=== PATIENT | female | born 1950 | race Caucasian/White ===

== ENCOUNTER → 2019-08-30 10:47 | Outpatient (CLI) | payer MEDICARE, SELFPAY | PROVIDERS: PCP Family Medicine; Visit Provider Family Medicine | DX: N89.8 Other specified noninflammatory disorders of vagina (principal) | CPT/HCPCS: 87070; 87075; 87077; 87147; 87186; 87205 ==

== ENCOUNTER 2019-09-16 11:15 | Outpatient (RCR) | payer MEDICARE, SELFPAY ==
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
--- NOTE | 2019-08-05 09:45 | PT.OPPOC ---
Current Diagnoses Bilateral primary osteoarthritis of knee (08/05/19) Radiculopathy, lumbar region (08/05/19) Muscle weakness (generalized) (08/05/19) Abnormal posture (08/05/19) Visit Care Team Role Provider Type Coby Blake DO Attending Provider Physician Primary Care Provider Specialty: Family Practice Address: [address] [place] [address], [address], [facility] Email: [email or web address] Plan Of Care PT-OP-T Assessment and Plan Start: 08/05/19 18:12 Freq: Status: Active Protocol: Document 08/05/19 09:45 DLM (Rec: 08/05/19 19:21 DLM [id number]) Physical Therapy Assessment Rehab Potential Rehabilitation Potential Good Evaluation Complexity Number of Personal Factors/Comorbidities 3 or More Number of Body Systems Impaired 4 or More Clinical Presentation at Evaluation Evolving Impairments Impairments Activity Tolerance,Functional Mobility,Gait,Pain,Posture,ROM ,Soft Tissue Mobility,Strength Goals Four Impairment Standing limited by pain Short Term Goal (STG) Be able to stand for 30 min without increased pain STG Duration 4 weeks Hand Pleater Goal (LTG) Be able to stand for 1 hour without increased pain LTG Duration 8 weeks Three Impairment Decreased strength Short Term Goal (STG) Increase LE strength to 4/5 STG Duration 4 weeks Hand Pleater Goal (LTG) Increase LE strength to 5/5 LTG Duration 8 weeks Two Impairment Pain limits Walking for exercise Short Term Goal (STG) Be able to walk 30 min for exercise STG Duration 4 weeks Residential Goal (LTG) Be able to walk for 1 hour for exercise LTG Duration 8 weeks One Impairment Pain 5-6/10, constant Short Term Goal (STG) Decrease her pain to intermittent STG Duration 4 weeks Hand Pleater Goal (LTG) Decrease her pain to 2-3/10, intermittent LTG Duration 8 weeks Assessment Summary Assessment Hemalatha present with low back pain and bilateral knee pain that is chronic in nature and has progressively gotten worse . Lumbar and knee joints show degenerative changes. Soft tissue tightness and muscular weakness appears to be contributing to her pain. She reports a progressive decline in her activity tolerance at home associated with her pain. She could benefit from physical therapy to address the above impairments. She is not currently participating in any HEP. Physical Therapy Plan Frequency and Duration Frequency of Treatment 2x/Week Duration of Treatment 8 weeks Plan of Care Start Date 08/05/19 Plan of Care End Date 09/30/19 Therapeutic Interventions Therapeutic Interventions Aquatic Therapy,Gait Training, Home Exercise Program,Joint Mobilizations,Manual Therapy, Patient/Caregiver Education, Self-Care/Home Management,Soft Tissue Mobilization,Taping, Therapeutic Activities, Therapeutic Exercises Modalities Cold Pack/Ice Massage,Electric Stimulation,Hot Packs, Ultrasound Next Visit Focus/Plan Next Note Type Treatment Note Next Visit Plan start stretching for low back and strengthening ex for knees Plan of Care Dates Plan of Care Start Date 08/05/19 Plan of Care End Date 09/30/19 Please Sign and Return: I have reviewed this Plan of Care and certify that the skilled therapy services above are required to meet the patient?s needs. Physician Signature Date Printed Name and Credentials Clinical Instructor Signature Printed Name and Credentials
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
== END 2019-09-17 11:15 ==
LOC: PHYS 11:15
PROVIDERS: PCP Family Medicine; Visit Provider Family Medicine
DX: M54.16 Radiculopathy, lumbar region (principal); M17.0 Bilateral primary osteoarthritis of knee; R29.3 Abnormal posture; M62.81 Muscle weakness (generalized)
CPT/HCPCS: 97010; 97110; 97140; 97162

== ENCOUNTER → 2019-11-09 11:33 | Outpatient (CLI) | payer MEDICARE, SELFPAY ==
[2019-11-09 12:22] LABS: Appearance Urine UA CLEAR; Bilirubin Urine UA NEGATIVE (NEGATIVE); Color Urine UA YELLOW; Glucose Urine UA NEGATIVE (Negative); Ketones Urine UA NEGATIVE (NEGATIVE); Leukocyte Esterase Urine UA NEGATIVE (NEGATIVE); Nitrite Urine UA NEGATIVE (Negative); Occult Blood Urine UA TRACE-LYSED (Negative); Protein Urine UA NEGATIVE (Negative); Specific Gravity Urine UA <=1.005 (1.000-1.035); Urobilinogen Urine UA 0.2 E.U./dL (0.2)
[2019-11-09 12:23] LABS: pH Urine UA 6.5 (4.5-8.0)
[2019-11-09 12:34] LABS: Hematocrit 41.9 % (36-46); Mean Corpuscular HGB Conc 33.3 % (30-36); Mean Corpuscular Hemoglobin 30.3 PG (26-34); Mean Corpuscular Volume 90.9 fL (80-100); Platelet Count 326 X10^3/uL (150-400); Red Blood Cell Count 4.61 X10^6/uL (4.0-5.2); Red Cell Distribution Width 13.1 % (11.6-14.8); White Blood Cell Count 7.2 X10^3/uL (4.5-11.0)
[2019-11-09 13:10] LABS: Neutrophils Absolute Manual 3888 /uL (3000-5900); RBC Morphology Normal Morphology; Total Cells Counted 100
[2019-11-09 13:42] LABS: Alanine Aminotransferase 19 IU/L (<35); Albumin 4.5 g/dL (3.5-5.0); Albumin Globulin Ratio 1.7 (1.0-2.8); Alkaline Phosphatase 96 U/L (38-126); Aspartate Aminotransferase 24 IU/L (14-36); BUN Creatinine Ratio 24.3 (6-22); Bilirubin Total 0.7 mg/dL (0.2-1.3); Blood Urea Nitrogen 17 mg/dL (7-17); Carbon Dioxide 28 mmol/L (22-32); Chloride 103 mmol/L (98-107); Cholesterol 256 mg/dL (140-199); Estimated Glomerular Filt Rate > 60.0 mL/min (>60); Globulin 2.6 g/dL (1.7-4.1); Glucose 88 mg/dL (80-110); HDL Cholesterol 64 mg/dL (40-60); HEMOLYSIS < 15 (0-50); LDL Cholesterol Calculated 162 mg/dL (<100); Potassium 4.7 mmol/L (3.4-5.1); Sodium 140 mmol/L (137-145); Total Protein 7.1 g/dL (6.3-8.2); Triglycerides 150 mg/dL (35-150)
[2019-11-09 15:43] LABS: Thyroid Stimulating Hormone 0.83 uIU/mL (0.47-4.68)
== END ==
PROVIDERS: PCP Family Medicine; Visit Provider Family Medicine
DX: Z51.81 Encounter for therapeutic drug level monitoring (principal); I10 Essential (primary) hypertension
CPT/HCPCS: 36415; 80053; 80061; 81003; 84443; 85025

== ENCOUNTER → 2021-11-30 09:14 | Outpatient (CLI) | payer OTHER, SELFPAY ==
[2021-11-30 11:23] LABS: Alanine Aminotransferase 25 IU/L (<35); Albumin 4.5 g/dL (3.5-5.0); Albumin Globulin Ratio 1.7 (1.0-2.8); Alkaline Phosphatase 96 U/L (38-126); Aspartate Aminotransferase 28 IU/L (14-36); BUN Creatinine Ratio 21.9 (6-22); Bilirubin Total 0.7 mg/dL (0.2-1.3); Blood Urea Nitrogen 14 mg/dL (7-17); Carbon Dioxide 27 mmol/L (22-32); Chloride 106 mmol/L (98-107); Estimated Glomerular Filt Rate > 60.0 mL/min (>60); Globulin 2.7 g/dL (1.7-4.1); Glucose 92 mg/dL (80-110); HEMOLYSIS < 15 (0-50); Potassium 4.2 mmol/L (3.4-5.1); Sodium 139 mmol/L (137-145); Total Protein 7.2 g/dL (6.3-8.2)
== END ==
PROVIDERS: PCP Nurse Practitioner; Referring Provider Orthopaedic Surgery; Visit Provider Nurse Practitioner
DX: Z01.818 Encounter for other preprocedural examination (principal); E66.01 Morbid (severe) obesity due to excess calories; E78.2 Mixed hyperlipidemia; I10 Essential (primary) hypertension; Z68.39 Body mass index [BMI] 39.0-39.9, adult
CPT/HCPCS: 80053; 93005; 93010

== ENCOUNTER → 2021-12-04 12:35 | Outpatient (CLI) | payer OTHER, SELFPAY ==
[2021-12-04 13:22] LABS: Add Manual Diff / Slide Review NO; Basophils Absolute Auto 0 /uL (0-100); Basophils Percent Auto 0.3 % (0-2); Eosinophils Absolute Auto 100 /uL (0-450); Eosinophils Percent Auto 1.3 % (2-4); Hematocrit 39.5 % (36-46); Hemoglobin 13.3 g/dL (12.0-16.0); Lymphocytes Absolute Auto 1700 /uL (1100-4500); Lymphocytes Percent Auto 26.8 % (25-40); Mean Corpuscular HGB Conc 33.6 % (30-36); Mean Corpuscular Hemoglobin 30.1 PG (26-34); Mean Corpuscular Volume 89.6 fL (80-100); Monocytes Absolute Auto 500 /uL (0-900); Monocytes Percent Auto 7.4 % (3-14); Neutrophils Absolute Auto 4200 /uL (1500-7000); Neutrophils Percent Auto 64.2 % (50-75); Platelet Count 318 X10^3/uL (150-400); Red Cell Distribution Width 13.3 % (11.6-14.8); White Blood Cell Count 6.5 X10^3/uL (4.5-11.0)
[2021-12-04 13:33] LABS: Hemoglobin A1C% w Est Avg Glu 5.3 % (4.0-6.0)
[2021-12-04 13:44] LABS: Blood Urea Nitrogen 14 mg/dL (7-17); Calcium 9.7 mg/dL (8.4-10.2); Carbon Dioxide 27 mmol/L (22-32); Chloride 105 mmol/L (98-107); Cholesterol 166 mg/dL (140-199); Estimated Glomerular Filt Rate > 60.0 mL/min (>60); Glucose 91 mg/dL (80-110); HDL Cholesterol 66 mg/dL (40-60); HEMOLYSIS < 15 (0-50); LDL Cholesterol Calculated 84 mg/dL (<100); Potassium 4.3 mmol/L (3.4-5.1); Sodium 140 mmol/L (137-145); Triglycerides 80 mg/dL (35-150)
== END ==
PROVIDERS: PCP Nurse Practitioner; Referring Provider Orthopaedic Surgery; Visit Provider Orthopaedic Surgery
DX: R73.9 Hyperglycemia, unspecified (principal); E78.2 Mixed hyperlipidemia; Z01.812 Encounter for preprocedural laboratory examination; Z79.899 Other long term (current) drug therapy
CPT/HCPCS: 36415; 80048; 80061; 83036; 85025

== ENCOUNTER → 2022-01-28 09:43 | Outpatient (CLI) | payer OTHER, SELFPAY ==
[2022-01-28 14:46] LABS: COVID19 -Nasal RAPID Negative (Negative)
== END ==
PROVIDERS: PCP Nurse Practitioner; Visit Provider Family Medicine Sleep Medicine
DX: Z20.822 Contact with and (suspected) exposure to COVID-19 (principal)
CPT/HCPCS: 87635; C9803

== ENCOUNTER 2022-01-30 08:30 | Day surgery (SDC) | payer OTHER, SELFPAY ==
[2021-12-12 12:59] VITALS: BMI 38.7
[2022-01-30] VITALS (15 sets, daily range): BP systolic 109–167; BP diastolic 44–81; PULSE 57–73; RESP 12–17; TEMP 35.9–36.7; O2SAT 93–99; BMI 37.9
--- NOTE | 2022-01-30 06:00 | DI.RAD.S_ITS ---
PROCEDURE: XR KNEE RT 1TO2V INDICATIONS: prosthesis placement TECHNIQUE: 2 view(s) of the knee acquired. COMPARISON: [facility], [facility], XR KNEE ARTHRITIC SERIES , 02/13/2021, 10:56. FINDINGS: Bones: Patient is status post knee joint arthroplasty. Hardware components are in expected positions. Visualized bony structures are intact. Soft tissues: Overlying postoperative changes are noted. A subtle radiopacity is visualized anterior to the tibia on lateral view which was not present on the study dated February 13, 2021. IMPRESSION: 1. Expected appearances status post right knee arthroplasty. 2. Subtle radiopacity which may be in the soft tissues or overlying the soft tissues as described above. Dictated by: Radha Hughes M.D. on 01/30/2022 at 13:28 Approved by: Radha Hughes M.D. on 01/30/2022 at 13:29
[2022-01-30] MEDS: CELECOXIB 200 MG CAPSULE PO (09:39)
[2022-01-30] MEDS: ACETAMINOPHEN 325 MG TABLET 975 MG PO (09:39)
[2022-01-30] MEDS: PREGABALIN 75 MG CAPSULE PO (09:39)
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
[2022-01-30] MEDS: LACTATED RINGERS 1,000 ML 42 ML IV (09:46)
--- NOTE | 2022-01-30 09:59 | P.OP_ITS ---
Operative Date/Time/Diagnoses Date of procedure: 01/30/22 Time of procedure: 12:25 Pre-op diagnosis: Right knee osteoarthritis Post-op diagnosis: same Procedure & Clinicians Procedure: Right total knee replacement Same procedure as scheduled: Yes Indications: The patient has had progressively worsening right knee pain with radiographic changes consistent with arthritis. Non-operative management has failed and the patient has requested total knee replacement. The risks, benefits and alternatives to surgery were discussed with the patient prior to proceeding. Risks discussed included, but were not limited to, failure to relieve pain, stiffness, infection, nerve damage, deep venous thrombosis, pulmonary embolism, stroke, coma, heart attack, permanent paralysis and , as well as the potential need for eventual revision of the prosthetic. Surgeon: Obinna Mccoy Breast Buffer: Oz Beckford Click Yes if Unassisted: No Anesthesia Type: General, Spinal and Local Operative Notes Findings: Severe medial and moderate patellofemoral osteoarthritis. Closure Type: primary Specimen(s): none sent Prosthetic devices, grafts, tissues, transplants, or devices: Implants used in this procedure were manufactured by the [employer] and included the BCS II Journey total knee replacement with a size 6 right cobalt chromium femur, a size 5 right non porous tibial base plate, a 10 mm cross-linked tibial insert, and a 35 mm oval Yasmine II patella. Applied: implant(s) Estimated Blood Loss (mL): 25 Blood products transfused: none Tourniquet time (min): 52 Procedure in detail: The patient was seen in the pre-operative area, where the patient identified the right knee as the operative site and this was marked with my initials. The patient received pre-operative antibiotics, and was taken to the operating room and placed on the operative table in the supine position. After satisfactory anesthesia, a wet machine tender out was performed. The right leg was encircled with a tourniquet about the proximal thigh, and the leg was prepared from the toes to the tourniquet with ChloroPrep in the usual fashion and draped through sterile drapes. The leg was elevated and exsanguinated with Eschmark bandage and the tourniquet inflated to 250 mmHg pressure. The knee was approached through an approximately 18 cm incision centered over the patella and carried into the knee through a medial parapatellar arthrotomy. The anterior osteophytes and soft tissues were removed. The rotational landmarks of [place]'s line and the transepicondylar axis were marked on the femur with electrocautery, and intramedullary guide holes for the femur and tibia were created. The distal femoral cut was made in 6 degrees of valgus using the intramedullary guide at the primary cut setting. The proximal tibial cut was then made using the intramedullary guide, taking 9 mm of bone off the less involved side. The extension gap was checked and the rotation of the femoral component confirmed with the gap balancing system. The anterior, posterior and chamfer cuts were then made. The posterior osteophytes and soft tissues were then removed. The posterior capsule was injected with part of a mixture of 60 ml 0.25% Marcaine mixed with 20 ml Exparel and 4 mg of morphine for post-operative pain control. The remainder of this mixture was injected into the capsule and subcutaneous tissues during cement curing. The tibia was prepared with the rotation set by an extra medullary guide. Trial tibial and femoral components were then placed and the intercondylar notch cut through the femoral trial. Range of motion was 0-125 degrees, with good stability throughout the range. Further flexion was limited by the patient's obesity. The patella was then cut to accommodate the patellar prosthetic. There was no need for a lateral release. The trials were then removed, and the femoral hole plugged with a bone plug. The bone was prepared with pulsatile lavage, and dried with a sponge. Cement was applied and the final prosthetics placed. Excess cement was removed during and after cement curing. After confirming there was no extruded cement posteriorly, the final tibial insert was placed. The knee was copiously irrigated and the tourniquet deflated. Hemostasis was obtained. The capsule was closed with interrupted # 2 polyester suture. The subcutaneous layer was closed with 3-0 Vicryl, and the skin with a running 3-0 V-Lock suture and Dermabond. An Aquacel Ag dressing was applied and the patient was taken to recovery having tolerated the procedure well. Complications: none Post-operative Condition: stable Disposition: PACU Plan for aftercare: Right total knee postop plan
[2022-01-30] MEDS: CEFAZOLIN 2 GM/20 ML SYRINGE IV (11:10)
[2022-01-30] MEDS: TRANEXAMIC ACID 1,000 MG VIAL 1000 MG INJ ×2 (11:12→12:13)
--- NOTE | 2022-01-30 11:17 | SUR.OPER ---
Supine on padded OR bed. Pillow under head, arms secured on padded armboards <90 degree abduction. Safety belt across torso. Non-operative leg secured with tape over blanket over lower leg. Operative leg secured in DeMayo positioner. Foam padded brace at thigh of operative leg.
[2022-01-30] MEDS: BUPIVACAINE LIPOSOME 266 MG/20 ML VIAL INJ (11:40)
[2022-01-30] MEDS: BUPIVACAINE 0.25% (PF) 60 ML, EPINEPHrine 0.3 MG INJ (11:40)
[2022-01-30] MEDS: MORPHINE 4 MG/ML INJ INJ (11:41)
[2022-01-30] MEDS: fentaNYL 250 MCG/5 ML INJ IV ×5 (12:57→14:00)
[2022-01-30] MEDS: OXYCODONE IR 5 MG TABLET PO ×2 (13:06→14:00)
--- NOTE | 2022-01-30 14:10 | SUR.PHASEII ---
Started on incentive spirometry. Performed x10 up to 2250cc.
--- NOTE | 2022-01-30 14:47 | SUR.PHASEII ---
Using walker, pt able to stand, take 2 steps forward, and pivot into wheelchair. Bending knee without difficulty.
== END 2022-01-30 14:35 | disposition home or self-care (01) ==
LOC: OR 08:32 → AC 08:32
PROVIDERS: PCP Nurse Practitioner; Referring Provider Orthopaedic Surgery; Visit Provider Orthopaedic Surgery
PROC: 0SRC0JZ Replacement of Right Knee Joint with Synthetic Substitute, Open Approach (ICD-10-PCS; CPT 27447; principal; 2022-01-30 10:00)
DX: M17.11 Unilateral primary osteoarthritis, right knee (principal); I10 Essential (primary) hypertension; E78.5 Hyperlipidemia, unspecified
CPT/HCPCS: 27447; 73560; C1776; C1713; C9290; J0171; J0690; J1100; J2250; J2270; J2405; J2704; J3010

== ENCOUNTER → 2022-08-01 11:25 | Outpatient (CLI) | payer OTHER, SELFPAY ==
[2022-08-01 14:28] LABS: Add Manual Diff / Slide Review NO; Basophils Absolute Auto 0 /uL (0-100); Basophils Percent Auto 0.5 % (0-2); Eosinophils Absolute Auto 100 /uL (0-450); Eosinophils Percent Auto 1.7 % (2-4); Hematocrit 40.9 % (36-46); Hemoglobin 13.4 g/dL (12.0-16.0); Lymphocytes Absolute Auto 1700 /uL (1100-4500); Lymphocytes Percent Auto 27.9 % (25-40); Mean Corpuscular HGB Conc 32.8 % (30-36); Mean Corpuscular Hemoglobin 29.4 PG (26-34); Mean Corpuscular Volume 89.5 fL (80-100); Monocytes Absolute Auto 400 /uL (0-900); Neutrophils Absolute Auto 3800 /uL (1500-7000); Neutrophils Percent Auto 62.9 % (50-75); Platelet Count 301 X10^3/uL (150-400); Red Blood Cell Count 4.57 X10^6/uL (4.0-5.2); Red Cell Distribution Width 13.9 % (11.6-14.8); White Blood Cell Count 6.1 X10^3/uL (4.5-11.0)
[2022-08-01 14:33] LABS: Hemoglobin A1C% w Est Avg Glu 5.5 % (4.0-6.0)
[2022-08-01 14:41] LABS: BUN Creatinine Ratio 25.4 (6-22); Blood Urea Nitrogen 16 mg/dL (7-17); Calcium 9.3 mg/dL (8.4-10.2); Carbon Dioxide 29 mmol/L (22-32); Chloride 103 mmol/L (98-107); Estimated Glomerular Filt Rate > 60 mL/min (>60); Glucose 79 mg/dL (80-110); HEMOLYSIS < 15 (0-50); Potassium 4.6 mmol/L (3.4-5.1); Sodium 138 mmol/L (137-145)
== END ==
PROVIDERS: PCP Nurse Practitioner; Referring Provider Orthopaedic Surgery; Visit Provider Orthopaedic Surgery
DX: R73.9 Hyperglycemia, unspecified (principal); M25.561 Pain in right knee; Z01.812 Encounter for preprocedural laboratory examination
CPT/HCPCS: 36415; 80048; 83036; 85025

== ENCOUNTER → 2022-08-19 12:48 | Outpatient (CLI) | payer OTHER, SELFPAY ==
[2022-08-19 13:22] LABS: COVID19 -Nasal RAPID Negative (Negative)
== END ==
PROVIDERS: PCP Nurse Practitioner; Referring Provider Orthopaedic Surgery; Visit Provider Orthopaedic Surgery
DX: Z20.822 Contact with and (suspected) exposure to COVID-19 (principal)
CPT/HCPCS: 87635; C9803

== ENCOUNTER 2022-08-21 06:14 | Day surgery (SDC) | payer OTHER, SELFPAY ==
[2022-08-15 09:48] VITALS: BMI 40.3
[2022-08-21] VITALS (16 sets, daily range): BP systolic 106–181; BP diastolic 54–99; PULSE 61–87; RESP 12–98; TEMP 35.9–36.6; O2SAT 14–98; BMI 37.1; BMI 42.0
--- NOTE | 2022-08-21 06:00 | DI.RAD.S_ITS ---
PROCEDURE: XR KNEE LT 1TO2V INDICATIONS: total left knee TECHNIQUE: 2 view(s) of the knee acquired. COMPARISON: [facility], CR, XR KNEE 4+ VIEWS LEFT, 05/06/2022, 10:51[facility], CR, XR KNEE RT 1TO2V, 01/30/2022, 12:46. FINDINGS: Bones: Patient is status post knee joint arthroplasty. Hardware components are in expected positions. Visualized bony structures are intact. Soft tissues: Overlying postoperative changes are noted. IMPRESSION: Postop changes from left total knee arthroplasty with anatomic left knee alignment. Dictated by: Kingston Stover M.D. on 08/21/2022 at 10:22 Approved by: Kingston Stover M.D. on 08/21/2022 at 10:23
[2022-08-21] MEDS: ACETAMINOPHEN 325 MG TABLET 975 MG PO (07:07)
[2022-08-21] MEDS: CELECOXIB 200 MG CAPSULE PO (07:08)
[2022-08-21] MEDS: LACTATED RINGERS 1,000 ML 42 ML IV (07:11)
--- NOTE | 2022-08-21 07:43 | PM.PREOP ---
Pre-operative Note COVID-19 COVID-19 status: Negative Result date/Date tested (Pos, Neg/Pending): 08/19/22 Interval Note History & Physical reviewed/Exam performed by Physician: Yes Changes to H&P: No
[2022-08-21] MEDS: CEFAZOLIN 2 GM/100 ML PREMIX 100 ML IV ×3 (07:57→23:33)
[2022-08-21] MEDS: TRANEXAMIC ACID 1,000 MG VIAL 2000 MG INJ ×2 (08:04→09:15)
--- NOTE | 2022-08-21 08:23 | SUR.OPER ---
Supine on padded OR bed. Pillow under head, arms secured on padded armboards <90 degree abduction. Safety belt across torso. Non-operative leg secured with tape over blanket over lower leg. Operative leg secured in DeMayo positioner.
[2022-08-21] MEDS: BUPIVACAINE 0.25% (PF) 60 ML, EPINEPHrine 0.3 MG INJ (08:35)
[2022-08-21] MEDS: BUPIVACAINE LIPOSOME 266 MG/20 ML VIAL INJ (08:35)
[2022-08-21] MEDS: MORPHINE 4 MG/ML INJ INJ (08:36)
--- NOTE | 2022-08-21 09:44 | P.OP_ITS ---
Operative Date/Time/Diagnoses Date of procedure: 08/21/22 Time of procedure: 09:30 Pre-op diagnosis: Left knee osteoarthritis with retained screws from prior procedure Post-op diagnosis: same Procedure & Clinicians Procedure: 1. Left total knee replacement 2. Removal of deep hardware Same procedure as scheduled: Yes Indications: The patient has had progressively worsening left knee pain with radiographic changes consistent with arthritis. Non-operative management has failed and the patient has requested total knee replacement. She also has retained screws from a prior tibial tubercle transfer and is aware that these need to be removed to facilitate the total knee replacement. The risks, benefits and alternatives to surgery were discussed with the patient prior to proceeding. Risks discussed included, but were not limited to, failure to relieve pain, stiffness, infection, nerve damage, deep venous thrombosis, pulmonary embolism, stroke, coma, heart attack, permanent paralysis and , as well as the potential need for eventual revision of the prosthetic. Surgeon: Obinna Mccoy Field Crop Technical Officer: Oz Beckford Click Yes if Unassisted: No Anesthesia Type: General, Spinal and Local Operative Notes Findings: Severe medial osteoarthritis. Difficult exposure of the patellofemoral joint due to prior tibial tubercle transfer. Mild patella baja. Closure Type: primary Specimen(s): none sent Prosthetic devices, grafts, tissues, transplants, or devices: Implants used in this procedure were manufactured by the [employer] and included the BCS II Journey total knee replacement with a size 6 left cobalt chromium femoral component, a size 5 left non porous tibial base plate, a 9 mm cross-linked polyethylene tibial insert and a 35 mm oval Yasmine II patellar resurfacing component. Two large fragment cancellous Synthes screws were removed from the tibial tubercle. Applied: implant(s) Estimated Blood Loss (mL): 25 Blood products transfused: none Tourniquet time (min): 53 Procedure in detail: The patient was seen in the pre-operative area, where the left knee was identified as the operative site and this was marked with my initials. The patient received pre-operative antibiotics, and was taken to the operating room and placed on the operative table in the supine position. After satisfactory anesthesia, a part time out was performed. The left leg was encircled with a tourniquet about the proximal thigh, and the leg was prepared from the toes to the tourniquet with ChloroPrep in the usual fashion and draped through sterile drapes. The leg was elevated and exsanguinated with Eschmark bandage and the tourniquet inflated to 250 mmHg pressure. The knee was approached through an approximately 18 cm incision which curved to incorporate the 2 prior surgical incisions from her patellar surgery and was carried into the knee through a medial parapatellar arthrotomy. The heads of the 2 screws in the tibial tubercle were readily identified and the screws removed with a large fragment screwdriver. This proceeded without difficulty. The anterior osteophytes and soft tissues were removed. The rotational landmarks of [place]'s line and the transepicondylar axis were marked on the femur with electrocautery, and intramedullary guide holes for the femur and tibia were created. The distal femoral cut was made in 6 degrees of valgus using the intramedullary guide at the primary cut setting. The proximal tibial cut was then made using the intramedullary guide, taking 9 mm of bone off the less involved side. The extension gap was checked and the rotation of the femoral component confirmed with the gap balancing blocks. The anterior, posterior and chamfer cuts were then made. The posterior osteophytes and soft tissues were then removed. The posterior capsule was injected with part of a mixture of 60 ml 0.25% Marcaine mixed with 20 ml Exparel and 4 mg of morphine for post-operative pain control. The remainder of this mixture was injected into the capsule and subcutaneous tissues during cement curing. The tibia was prepared with the rotation set by an extra medullary guide. Trial tibial and femoral components were then placed and the intercondylar notch cut through the femoral trial. Range of motion was 0-135 degrees, with good stability throughout the range. The patella was then cut to accommodate the patellar prosthetic. There was no need for a lateral release. The trials were then removed, and the femoral hole plugged with a bone plug. The bone was prepared with pulsatile lavage, and dried with a sponge. Cement was applied and the final prosthetics placed. Excess cement was removed during and after cement curing. After confirming there was no extruded cement posteriorly, the final tibial insert was placed. The knee was copiously irrigated and the tourniquet deflated. Hemostasis was obtained. The capsule was closed with interrupted # 2 polyester sutures. The subcutaneous layer was closed with 3-0 Vicryl, and the skin with a running 3-0 V-Lock suture and Dermabond. A dressing of 4x4s, cast padding and an Lico wrap was applied and the patient was taken to recovery having tolerated the procedure well. Complications: none Post-operative Condition: stable Disposition: PACU Plan for aftercare: The patient has requested to be discharged today. She will be discharged from the recovery room if stable. If she has medical issues or uncontrolled pain requiring overnight admission she will be admitted to the hospital later this morning.
--- NOTE | 2022-08-21 10:42 | SUR.PHASEI ---
Pt transferred to room 203 in bed with 1 belongings bag by Leola Noriega. Report called to Carola NORIEGA.
--- NOTE | 2022-08-21 11:11 | CM.DANOTE ---
DCP: Case received, EMR reviewed and met with patient. Introduced self and role. Was able to obtain information regarding patient's baseline activity status prior to her surgery. DCP assessment completed with information currently available. Patient is a 72 year old female who admitted early this morning to the care of the orthopedic team. PCP: JUANITA Farrar. Payer: confirmed: [employer]. Patient came to the hospital for a surgical procedure. She had a left total knee replacement. Patient has history of left knee osteoarthritis. Met with patient in her room. She was sitting up in bed, alert and oriented. Confirmed that she resides in [facility] with with her spouse, Alvarado. At her baseline, she is independent, does not use any DME, and drives. P: Patient should be discharging today, but will work with P.T. prior. Jamila Madison RN/Project Associate Discharge Planning/Care Management CM Discharge Assessment Start: 08/21/22 11:10 Freq: Status: Active Protocol: Document 08/21/22 11:10 (Rec: 08/21/22 11:11 [id number]) Discharge Planning Assessment Assigned Welt Stitch Cleaner Jamila Madison RN/Project Associate Advance Directives? Yes History Provided By Patient Prior Living Arrangements House Household Members spouse Type of transporation used prior to Drives own vehicle admit Independent with ADL's Yes Is patient alert and oriented? Yes Caregiver for Another No Discharge Plan Home Transportation Arrangement Spouse Referrals Initiated None needed Whiteboard Updated in Patient Room with Yes name and ext. # of Welt Stitch Cleaner Review Status In Process Next Review Type Continued Stay Review Pre-Anesthesia Assessment Start: 08/15/22 09:47 Freq: Status: Active Protocol: Document 08/15/22 09:48 CAB (Rec: 08/15/22 09:56 CAB [id number]) Pre-Anesthesia Assessment PAC Comment Pt is s/p RT TKA 01/30/22. She declines scheduled PAC call for upcoming surgery. She denies any changes to medical/ medication history, no questions/concerns, chart review only. Patient Information Reviewed Via Chart Review Diagnostic Results BMP/CMP,CBC,EKG Comment Labs(08/01/22), ECG (11/30/21)@ COVID screen @ [facility] 08/19/22 Primary Care Provider Dinorah Casas Seen Specialist in Last 12 Months Yes Specialist Seen Orthopedist Primary Language French Window And Door Installer Required No Height 5 ft 6 in Weight 250 lb Body Mass Index (BMI) 40.3 Hearing Ability Normal Visual Assist Glasses Dentition Type Teeth, Natural Present,Dental Implants Barriers to Learning None Hx Anesthesia Reactions Yes: PONV-severe Hx Family Anesthesia Reaction No Hx Malignant Hyperthermia No Hx Blood Transfusions No Anesthesia Review Requested No Assistant Customer Service Manager No alcohol intake current alcohol intake frequency a few times a month Smoking Status Never smoker Substance Use Type does not use Pain Present Pain Reported Musculoskeletal Symptoms Abnormal Gait,Back Pain, Difficulty Walking,Joint Pain History of Falling (Recent or History of Yes ) Patient is completely paralyzed or No completely immobile Mental Status Oriented to own ability Comment Hx of unsteadiness Is patient on oxygen? No Does patient have DIEGO/SOB No Hx Sleep Apnea No CPAP/BIPAP use not prescribed Currently Taking a Beta Tami No Hx Chest Pain No Hx SOB No Hx Syncope or Dizziness No Anti-Coagulant Therapy No Has a Commissioning Specialist No Cardiac Testing No Hx Pacemaker/ICD No Pacemaker Rep Required? No Cardiac Clearance Received Not Applicable Diet Type At Home Regular dysphagia No Urinary Catheter Present No Hx Urinary Self Catheterization No Diabetes No Patient No Lactating No Hx Drug Resistant Organism No Presence of External or Internal Medical Yes: Bilateral knee prosthesis Devices Received a COVID vaccine? Yes: x3 Marital Status Lives With spouse Number of Floors (Floors) One Floor Support System Spouse Patient Discharge Plan Description Return Home Feels Safe in Current Environment Yes Been Physically Hurt or Threatened By a No Person in Current Environment Do you have thoughts of harming yourself None or others? Are you currently considering suicide? No Do you have a plan to hurt yourself or No Plan others? Do You Have Any Spiritual Beliefs That No May Affect Your HC Choices? Do You Have Any Cultural Practices That No May Affect Your HC Choices? Who Can We Speak to About Patient's Care Family, friends Identifying Code for Release of Patient declines to issue Information Health Care Proxy/Next of Kin Anatoly () Health Care Proxy Emergency Contact Name Anatoly () Emergency Contact Advance Directives? No Power of Manager Respiratory Care No
[2022-08-21] MEDS: OXYCODONE IR 5 MG TABLET PO ×2 (13:17→13:32)
--- NOTE | 2022-08-21 13:25 | PT.IIE ---
Current Diagnoses Unilateral primary osteoarthritis, left knee (08/21/22) Presence of functional implant, unspecified (08/21/22) Surgery Performed Operation Date: 08/21/22 07:45 Actual Procedures p Total Knee Arthroplasty/removal of deep implant(Left) - Obinna Mccoy MD Surgical History (Last Reviewed 08/21/22 @ 06:53 by Mario Guillen, RN) Anesthesia History of arthroscopic knee surgery (~1994) History of total right knee replacement (01/30/22) Hx of oral surgery (09/2021) Hx of tonsillectomy Medical History (Last Reviewed 08/21/22 @ 06:52 by Mario Guillen, ZI) Anxiety (~2007) Breast cancer screening Cervical cancer screening Cervical discharge Chicken pox Chronic back pain (~2017) Class 2 obesity due to excess calories with body mass index (BMI) of 39.0 to 39.9 in adult Depression History of Mohs micrographic surgery for skin cancer History of urinary incontinence (~2017) Measles Migraines Mumps Neck pain Obesity, Class III, BMI 40-49.9 (morbid obesity) Osteoarthritis Right knee pain Physical Therapy Inpatient Evaluation/Re-Eval M1 PT/OT-IP Prior Functional Status Start: 08/21/22 14:06 Freq: NEEDED Status: Active Protocol: Document 08/21/22 13:25 AB (Rec: 08/21/22 14:16 AB [id number]) Medical Review Prior Functional Status Medical History Reviewed Yes Communication able to make needs known Mobility and Gait pt stated that she is independent with all mobilities and ambulation without AD Social History Household Members spouse Living Arrangements House Number of Floors (Floors) One Floor Number of Stairs To Enter/Railing? no steps to enter Home Environment Standard Height Toilet,Walk in Shower,Built-In Shower Seat Home Equipment Front Wheel Walker,Straight Cane,Crutches,Raised Toilet Seat w/Armrests Additional Social History Comment spouse Anatoly will be able to assist pt at home M2 PT-IP Current Condition Start: 08/21/22 14:06 Freq: NEEDED Status: Active Protocol: Document 08/21/22 13:25 AB (Rec: 08/21/22 14:16 AB [id number]) Physical Therapy Current Condition Current Condition Evaluation Date 08/21/22 Treatment Diagnosis s/p L TKA; difficulty in walking Onset Date 08/21/22 M3 PT-IP Subjective Start: 08/21/22 14:06 Freq: NEEDED Status: Active Protocol: Document 08/21/22 13:25 AB (Rec: 08/21/22 14:16 AB [email or web address]) Subjective Physical Therapy Visit Type Type Initial Evaluation Visit Start Time 13:25 Visit Stop Time 14:01 Total Visit Minutes 36 Number of DIRECTOR OF COMMUNICATIONS Visits 0 Physical Therapy Visit Comments Patient Comments agreeable to do PT Therapy Pain Assessment Pain When Pain Assessed At Rest Pain Present Pain Present Pain Reported Location left knee Intensity 4 Scale Used Numeric (0 - 10) Pain Management Techniques Distraction,Modification of Treatment,Re-positioning, Timing of Activity with Medications M4 PT-IP Mobility and Gait Start: 08/21/22 14:06 Freq: NEEDED Status: Active Protocol: Document 08/21/22 13:25 AB (Rec: 08/21/22 14:16 AB [id number]) PT-Bed Mobility Assessment Supine to Sit Supine to Sit Standby Assistance Sit to Supine Sit to Supine Minimal Assistance,1 Person Assistance PT-Transfer Assessment Comments Mobility Comments BP in supine: 170/85. pt completed supine to sit SBA. able to sit on EOB SBA. pt requesting to use the toilet but c/o lightheadedness that progressed to nausea and pt needing to lay back in bed. completed sit to supine min A. positioned pt in bed. BP in supine: 106/57. NAC in room and assist pt with use of bed munguia. Left pt with NACs. informed nurse regarding c/o lightheadedness/nausea and asking for medication. also made aware of decrease BP caregiver training set up for tomorrow at 9 am. PT-Balance Assessment Sitting Balance and Reactions Static Sitting Balance Ability Normal Dynamic Sitting Balance Ability Good M5 PT-IP Objective Assessments Start: 08/21/22 14:06 Freq: NEEDED Status: Active Protocol: Document 08/21/22 13:25 AB (Rec: 08/21/22 14:16 AB [id number]) Orientation Orientation/Cognition Level of Alertness Alert Orientation Name,Place,Situation Language Function Ability No Deficits Noted Safety Awareness Understands Safety Issues, Decreased Safety Awareness Memory Description No Deficits Noted Gross Range of Motion Lower Extremity ROM Impairments L knee flexion: ~ 90 deg L knee extension: ~ 30 deg less to 0 Strength Lower Extremity Strength Hip 4/5 Knee 4-/5 Coordination Assessment Gross Coordination Gross Coordination WNL Sensation Assessment Sensation Gross Sensation WNL Muscle Tone Muscle Tone WNL Yes M6 PT-IP Treatment Start: 08/21/22 14:06 Freq: NEEDED Status: Active Protocol: Document 08/21/22 13:25 AB (Rec: 08/21/22 14:16 AB [id number]) Physical Therapy Treatment Education Education Provided Precautions,Weight Bearing Status,Post-Op Packet,Safety M7 PT-IP Assessment and Plan Start: 08/21/22 14:06 Freq: NEEDED Status: Active Protocol: Document 08/21/22 13:25 AB (Rec: 08/21/22 14:16 AB [id number]) PT Summary Assessment and Plan Potential Rehabilitation Potential Good Status of Condition at Evaluation Evolving Summary Impairments Pain,ROM,Strength,Balance, Coordination,Sensation,Tone, Cognition,Bed Mobility, Transfers,Gait,Activity Tolerance Assessment Summary pt s/p L TKA and just had surgery this morning. pt unable to tolerate much activity with c/o lightheadedness/nausea and decrease BP from supine 170/85 to 106/57 in upright sitting position. will continue to assess progress. caregiver training set up for tomorrow at 9 am. Goals Bed Mobility Goal Independent Transfer Goal Independent,Front Wheeled Walker Gait Goal Independent,Front Wheel Walker Gait Distance 200 Days to Meet Goals 5 Frequency of Treatment Frequency Of Treatment Twice a Day Treatment Plan Physical Therapy Treatment Plan Bed Mobility Training,Transfer Training,Gait Training, Therapeutic Exercise,Balance Retraining,Post Op Education, Discharge Planning,Hot or Cold Pack,Neuromuscular Re-ed, Coordination Retraining,Manual Therapy Weight Bearing Status Weight Bearing Status Weight Bear as Tolerated Allowed Weight Bearing Amount (enter % LLE WBAT or #) (%) Recommendations To Nursing Amount of Assist Needed PT/OT Assist Only Discharge Recommendations PT Discharge Recommendations Home with Assistance, Outpatient PT Transportation Needs at Discharge Private Vehicle,Wheelchair/ Cabulance
--- NOTE | 2022-08-21 13:25 | PC.NURSE ---
Addendum entered by Carola Linares R.N. 08/21/22 14:14: patient did not pass physical therapy. BP dropped when she got up(see PT's notes). administered zofran for nausea. Original Note: called Oz Beckford regarding patient's pain. VTO to give additional 5mg and order oxy 10mg Q3hr prn, zofran and vistaril. No IV fluids or antibiotics needed. the patient needs to pass PT and she needs to void before dc.
[2022-08-21] MEDS: ONDANSETRON 4 MG/2 ML INJ IV (14:03)
[2022-08-21] MEDS: OXYCODONE IR 10 MG TABLET PO ×2 (16:32→20:15)
[2022-08-21] MEDS: LACTATED RINGERS 1,000 ML 100 ML IV (16:32)
[2022-08-21] MEDS: ACETAMINOPHEN 325 MG TABLET 650 MG PO ×2 (17:40→23:32)
[2022-08-21] MEDS: ASPIRIN EC 81 MG TABLET PO (20:15)
[2022-08-21] MEDS: DOCUSATE 100 MG CAPSULE PO (20:15)
[2022-08-22] MEDS: SODIUM CHLORIDE 0.9% FLUSH 10 ML IV ×2 (03:31→08:19)
[2022-08-22] MEDS: OXYCODONE IR 10 MG TABLET PO ×2 (03:33→08:19)
[2022-08-22 03:59] VITALS: BP 143/56; PULSE 69; RESP 18; TEMP 36.8; O2SAT 97
[2022-08-22] MEDS: ACETAMINOPHEN 325 MG TABLET 650 MG PO (06:07)
[2022-08-22 07:12] LABS: Hematocrit 33.7 % (36-46); Hemoglobin 11.3 g/dL (12.0-16.0)
--- NOTE | 2022-08-22 07:26 | PM.DS.1 ---
History of Present Illness History of Present Illness Date Patient Seen: 08/22/22 Time Patient Seen: 07:00 Chief complaint: LEFT TKA *OPB* Narrative: The history and physical is contained in the chart previously completed note. Please refer to that note for this information. Discharge Providers Provider Date of admission: August 21, 2022 Discharge Date: 08/22/22 Primary care physician: JUANITA Farrar Consults: 08/21/22 06:00 Consult to Anesthesiology Routine Comment: Consulting Provider: Anesthesiologist Reason for consultation: Regional block for post operative pain control 08/21/22 11:18 Consult to Physical Therapy Evaluate & Treat Comment: Physician Instructions: Evaluate and Treat 08/21/22 15:29 Consult to Discharge Planning Routine Comment: Consult to Physical Therapy Evaluate & Treat Comment: Physician Instructions: postop TKA protocol Consult to Respiratory Therapy Evaluate & Treat Comment: Physician Instructions: Evaluate and treat Discharge provider: Obinna Mccoy MD Summary Hospital Course Discharge Diagnosis: 1. Left knee osteoarthritis 2. Retained tibial screws from prior surgery. 3. Post hemorrhagic anemia Hospital Course: The patient was admitted to the hospital and taken directly to the operating room on August 21, 2022. She underwent removal of deep orthopedic hardware and left total knee replacement. She remained medically stable throughout her hospital course but had significant pain control difficulties on postoperative day 1 so she was admitted overnight for pain control. She has a minor post hemorrhagic anemia that should resolve without specific treatment. Status at Discharge Cognitive/behavioral status at discharge: at baseline, oriented Functional status at discharge: uses cane/walker Overall status at discharge: patient is progressing back to baseline Time Spent with Patient Time spent: Less than 30 minutes Exam Vital Signs (past 8 hours): - 08/21/22 23:42 08/22/22 03:59 Temperature 96.9 F L 98.3 F Pulse Rate 73 69 Respiratory Rate 18 18 Blood Pressure 150/84 H 143/56 H Pulse Oximetry 95 97 Oxygen Flow Rate 0 Oxygen Delivery Method Room Air Oxygen Flow Rate 0 Narrative Exam Narrative: Left leg wound is dressed with no drainage on the bandage. Calf is soft. Light touch and motion are intact in the left lower extremity. Objective Labs Result Diagrams: 08/22/22 06:28 Labs: Laboratory Results - last 24 hr 08/22/22 06:28 Hgb 11.3 L Hct 33.7 L PFSH Medical History Anxiety (~2007) Breast cancer screening Cervical cancer screening Cervical discharge Chicken pox Chronic back pain (~2017) Class 2 obesity due to excess calories with body mass index (BMI) of 39.0 to 39.9 in adult Depression History of Mohs micrographic surgery for skin cancer History of urinary incontinence (~2017) Measles Migraines Mumps Neck pain Obesity, Class III, BMI 40-49.9 (morbid obesity) Osteoarthritis Right knee pain Surgical History Anesthesia History of arthroscopic knee surgery (~1994) History of total right knee replacement (01/30/22) Hx of oral surgery (09/2021) Hx of tonsillectomy Family History Father History of heart disease Hypertension Mother Cancer Brother Cancer Hypertension Grandfather Hypertension Stroke Grandmother Breast cancer Hypertension Stroke Social History household members: spouse Smoking Status: Never smoker alcohol intake: current Discharge Assessment & Plan Assessment and Plan Assessment: Stable postoperative day 1 status post left total knee replacement and removal of tibial screws. She does have a mild post hemorrhagic anemia which is anticipated will spontaneously improve. Her pain is now under control. Plan of Treatment: Discharge to home. Follow up at my office in 10-14 days. Discharge prescriptions for oxycodone have been provided. She has been instructed in the use of aspirin for DVT prophylaxis and Tylenol and ibuprofen for additional pain control. Discharge Plan Discharge Plan Patient Disposition: Home Discharge orders & Medications Discharge Orders: Discharge (Order); Ordered 08/22/22 Ordered By: Obinna Mccoy Prescriptions: New oxycodone 5 mg Tablet 5 mg PO Q4HR PRN (Reason: Pain, Moderate (4-6)) Qty: 40 0RF Continued (DME) disabled parking permit See Rx Instructions .ROUTE .MEDSUPPLY Qty: 1 0RF Rx Instructions: As directed. patient qualifies for disabled parking as per attached form. omega-3 fatty acids [Fish Oil Concentrate] 1,000 mg capsule 1,000 mg PO DAILY multivitamin capsule 1 cap PO DAILY cholecalciferol (vitamin D3) 5,000 unit capsule 5,000 unit PO DAILY magnesium hydroxide 400 mg (170 mg magnesium) tablet,chewable 200 mg PO DAILY atorvastatin 20 mg tablet 20 mg PO DAILY Qty: 90 3RF Rx Instructions: Take 1 tab by mouth daily for cholesterol citalopram 20 mg tablet 30 mg PO DAILY 90 Days Qty: 135 3RF Rx Instructions: Take 1 1/2 tabs by mouth daily for depression/anxiety valsartan [Diovan] 80 mg tablet 160 mg PO DAILY Qty: 180 3RF Label Comments: Takes around 1pm Rx Instructions: Take 2 tablets daily for blood pressure Follow up/Referrals: Dinorah Casas ARNP [Primary Care Provider] - Obinna Mccoy MD [Physician] - 2 Weeks Diet/Activity/Treatments Diet: Diet as Tolerated and Regular Activity: You may bear weight as tolerated on your left leg. Cold/Heat Therapy: Apply ice to the left knee for 15 minutes every hour as needed for pain control. Skin/Wound/Dressing Care Report to your healthcare provider any signs of infection, such as:: chills, fever, night sweats, increased pain, unusual drainage and unusual redness Dressing: You may remove the dressing in 3 days and shower normally. You may apply a light gauze dressing to the wound if you wish. Visit Report/Discharge Packet Instructions: DI for Knee Replacement, How to Prevent Falls, DI for Prescription Opioid Use Stand Alone Forms: Surgery Discharge Discharge Data Primary Care Provider: Dinorah Casas Attending Provider: Obinna Mccoy Quality VTE Deep Vein Thrombosis/Pulmonary Embolism Present on Admission: No
[2022-08-22] MEDS: ASPIRIN EC 81 MG TABLET PO (08:19)
[2022-08-22] MEDS: DOCUSATE 100 MG CAPSULE PO (08:19)
[2022-08-22 08:20] VITALS: BP 124/74; PULSE 66; TEMP 36.9; O2SAT 95
--- NOTE | 2022-08-22 09:25 | PT.IPTN ---
Current Diagnoses Unilateral primary osteoarthritis, left knee (08/21/22) Presence of functional implant, unspecified (08/21/22) Surgery Performed Operation Date: 08/21/22 07:45 Actual Procedures p Total Knee Arthroplasty/removal of deep implant(Left) - Obinna Mccoy MD Physical Therapy Treatment Note M2 PT-IP Current Condition Start: 08/21/22 14:06 Freq: NEEDED Status: Discharge Protocol: Document 08/21/22 13:25 AB (Rec: 08/21/22 14:16 AB [id number]) Physical Therapy Current Condition Current Condition Evaluation Date 08/21/22 Treatment Diagnosis s/p L TKA; difficulty in walking Onset Date 08/21/22 M3 PT-IP Subjective Start: 08/21/22 14:06 Freq: NEEDED Status: Discharge Protocol: Document 08/22/22 09:01 KS (Rec: 08/22/22 12:01 KS [id number]) Subjective Physical Therapy Visit Type Type Treatment Note Visit Start Time 09:01 Visit Stop Time 09:25 Total Visit Minutes 24 Number of PRINCIPAL [employer] DEVELOPER Visits 1 Physical Therapy Visit Comments Patient Comments agreeable to do PT Therapy Pain Assessment Pain When Pain Assessed During Mobility Pain Present Pain Present Pain Reported Location left knee Intensity 5 Scale Used Numeric (0 - 10) Description Throbbing,With Movement Pain Behaviors Guarding Pain Management Techniques Distraction,Modification of Treatment,Re-positioning, Timing of Activity with Medications M4 PT-IP Mobility and Gait Start: 08/21/22 14:06 Freq: NEEDED Status: Discharge Protocol: Document 08/22/22 09:01 [place] (Rec: 08/22/22 12:01 KS [id number]) PT-Bed Mobility Assessment Supine to Sit Supine to Sit Standby Assistance Sit to Supine Sit to Supine Standby Assistance,1 Person Assistance Scooting Scooting to Edge of Bed Standby Assistance PT-Transfer Assessment Sit to and From Stand Sit to and from Stand Contact Guard Assistance Equipment Transfer Assistive Device Gait Belt,Front Wheeled Walker Transfers Transfer Destination Bed Transfer Technique pt ambulated w/ FWW Transfer Ability Level of Assist Standby Assistance,Contact Guard Assistance,1 Person Assistance,Use of Upper Extremities Comments Mobility Comments Pt in bed upon arrival w/ present for caregiver training. SBA for bed mobility and CGA for sit<>stand w/ FWW . Pts able to apply gait belt and provide assistance for sit<>stand. Pt ambulated ~60 ft around room w / FWW and returned to bed SBA to CGA. Discussed at home safety, ther ex, OPPT. Pt and feel safe to return home. Gait Assessment Gait Gait Assistance Required: Standby Assistance,Contact Guard Assist,1 Person Assist Distance (Feet) 60 Able to Maintain Weight Bearing Status Yes During Gait Assistive Devices Assistive Device Gait Belt,Front Wheeled Walker Gait Deviations General Gait Pattern Antalgic,Decreased Stride Length,Decreased Feet Clearance Factors Limiting Gait Function Factors Limiting Gait Function Decreased Activity Tolerance, Decreased Strength,Limited Range of Motion,Pain Comments Gait Comments Please refer to mobility section for details. Stair Climbing Assessment Comments Stair Climbing Comments Not assessed, no stairs at home. PT-Balance Assessment Sitting Balance and Reactions Static Sitting Balance Ability Normal Dynamic Sitting Balance Ability Good Standing Balance and Reactions Static Standing Balance Ability Good Dynamic Standing Balance Ability Good Device Used FWW M5 PT-IP Objective Assessments Start: 08/21/22 14:06 Freq: NEEDED Status: Discharge Protocol: Document 08/21/22 13:25 AB (Rec: 08/21/22 14:16 AB [id number]) Orientation Orientation/Cognition Level of Alertness Alert Orientation Name,Place,Situation Language Function Ability No Deficits Noted Safety Awareness Understands Safety Issues, Decreased Safety Awareness Memory Description No Deficits Noted Gross Range of Motion Lower Extremity ROM Impairments L knee flexion: ~ 90 deg L knee extension: ~ 30 deg less to 0 Strength Lower Extremity Strength Hip 4/5 Knee 4-/5 Coordination Assessment Gross Coordination Gross Coordination WNL Sensation Assessment Sensation Gross Sensation WNL Muscle Tone Muscle Tone WNL Yes M6 PT-IP Treatment Start: 08/21/22 14:06 Freq: NEEDED Status: Discharge Protocol: Document 08/22/22 09:01 [place] (Rec: 08/22/22 12:01 IL [id number]) Physical Therapy Treatment Exercises Exercises Ankle Pumps,Gluteal Sets,Quad Sets,Heel Slides,Straight Leg Raises Education Education Provided Precautions,Weight Bearing Status,Post-Op Packet,Safety Other Treatments Other Treatment Performed completed caregiver training M7 PT-IP Assessment and Plan Start: 08/21/22 14:06 Freq: NEEDED Status: Discharge Protocol: Document 08/22/22 09:01 [place] (Rec: 08/22/22 12:01 [place] [id number]) PT Summary Assessment and Plan Potential Rehabilitation Potential Good Summary Impairments Pain,ROM,Strength,Balance, Coordination,Sensation,Tone, Cognition,Bed Mobility, Transfers,Gait,Activity Tolerance Progress Towards Goals Progressing Toward Goals Assessment Summary Pt progressed well w/ PT today . SBA to CGA throughout treatment and pt able to ambulate ~60 ft w/ FWW. Completed caregiver training with patients who was able to provide all necessary cues and assistance. Pt will benefit from OPPT to improve strength and ROM. Goals Bed Mobility Goal Independent Transfer Goal Independent,Front Wheeled Walker Gait Goal Independent,Front Wheel Walker Gait Distance 200 Days to Meet Goals 5 Frequency of Treatment Frequency Of Treatment Twice a Day Treatment Plan Physical Therapy Treatment Plan Bed Mobility Training,Transfer Training,Gait Training, Therapeutic Exercise,Balance Retraining,Post Op Education, Discharge Planning,Hot or Cold Pack,Neuromuscular Re-ed, Coordination Retraining,Manual Therapy Weight Bearing Status Weight Bearing Status Weight Bear as Tolerated Allowed Weight Bearing Amount (enter % LLE WBAT or #) (%) Recommendations To Nursing Amount of Assist Needed 1 Person Assist Discharge Recommendations PT Discharge Recommendations Home with Assistance, Outpatient PT Transportation Needs at Discharge Private Vehicle
== END 2022-08-22 10:02 | disposition home or self-care (01) ==
LOC: OR 06:16 → AC 06:17
PROVIDERS: Physician Assistant Medical; PCP Nurse Practitioner; Referring Provider Nurse Practitioner; Visit Provider Orthopaedic Surgery
PROC: 0SRD0JZ Replacement of Left Knee Joint with Synthetic Substitute, Open Approach (ICD-10-PCS; CPT 27447; principal; 2022-08-21 07:45)
DX: M17.12 Unilateral primary osteoarthritis, left knee (principal); I10 Essential (primary) hypertension; E78.5 Hyperlipidemia, unspecified; D50.0 Iron deficiency anemia secondary to blood loss (chronic)
CPT/HCPCS: 27447; 36415; 73560; 85014; 85018; 97116; 97162; 97530; C1776; C1713; C9290; J0171; J0690; J1100; J2250; J2270; J2405; J2704; J3010

== ENCOUNTER → 2023-01-20 09:16 | Outpatient (CLI) | payer OTHER, SELFPAY ==
[2022-12-30 13:17] VITALS: BMI 42.0
[2023-01-20 11:44] LABS: Alanine Aminotransferase 23 IU/L (<35); Albumin 4.3 g/dL (3.5-5.0); Albumin Globulin Ratio 1.7 (1.0-2.8); Alkaline Phosphatase 103 U/L (38-126); Aspartate Aminotransferase 26 IU/L (14-36); BUN Creatinine Ratio 26.7 (6-22); Bilirubin Total 0.7 mg/dL (0.2-1.3); Blood Urea Nitrogen 16 mg/dL (7-17); Calcium 9.6 mg/dL (8.4-10.2); Carbon Dioxide 28 mmol/L (22-32); Chloride 102 mmol/L (98-107); Cholesterol 176 mg/dL (140-199); Estimated Glomerular Filt Rate > 60 mL/min (>60); Globulin 2.5 g/dL (1.7-4.1); Glucose 82 mg/dL (80-110); HDL Cholesterol 78 mg/dL (40-60); HEMOLYSIS < 15 (0-50); LDL Cholesterol Calculated 79 mg/dL (<100); Potassium 4.9 mmol/L (3.4-5.1); Sodium 138 mmol/L (137-145); Total Protein 6.8 g/dL (6.3-8.2); Triglycerides 97 mg/dL (35-150)
[2023-01-20 11:46] LABS: Free T3, Triiodothyronine Free 4.05 pg/mL (2.77-5.27); Free T4, Direct Thyroxine 1.26 ng/dL (0.78-2.19)
[2023-01-20 12:00] LABS: Thyroid Stimulating Hormone 1.81 uIU/mL (0.47-4.68)
[2023-01-20 16:24] LABS: Creatinine Urine Random 102.5 mg/dL
[2023-01-20 16:27] LABS: Microalbumin Urine Random < 0.6 mg/dL (0-1.6)
[2023-01-20 17:11] LABS: Hep C Virus Ab w/Reflex Quant NEGATIVE s/c (NEGATIVE)
== END ==
PROVIDERS: PCP Nurse Practitioner; Referring Provider Nurse Practitioner; Visit Provider Nurse Practitioner
DX: E78.2 Mixed hyperlipidemia (principal); F32.9 Major depressive disorder, single episode, unspecified; I10 Essential (primary) hypertension; Z79.899 Other long term (current) drug therapy
CPT/HCPCS: 36415; 80053; 80061; 82043; 82570; 84439; 84443; 84481; 86803

== ENCOUNTER → 2024-04-21 08:19 | Outpatient (CLI) | payer OTHER, SELFPAY ==
[2024-03-17 12:34] VITALS: BMI 42.0
[2024-04-21 09:56] LABS: Add Manual Diff / Slide Review NO; Basophils Absolute Auto 0 /uL (0-100); Basophils Percent Auto 0.5 % (0-2); Eosinophils Absolute Auto 200 /uL (0-450); Eosinophils Percent Auto 2.2 % (2-4); Hematocrit 40.9 % (36-46); Hemoglobin 13.8 g/dL (12.0-16.0); Lymphocytes Absolute Auto 1800 /uL (1100-4500); Mean Corpuscular HGB Conc 33.8 % (30-36); Mean Corpuscular Hemoglobin 30.5 PG (26-34); Mean Corpuscular Volume 90.1 fL (80-100); Monocytes Absolute Auto 600 /uL (0-900); Monocytes Percent Auto 7.5 % (3-14); Neutrophils Absolute Auto 4700 /uL (1500-7000); Neutrophils Percent Auto 64.8 % (50-75); Platelet Count 291 X10^3/uL (150-400); Red Blood Cell Count 4.54 X10^6/uL (4.0-5.2); Red Cell Distribution Width 13.1 % (11.6-14.8); White Blood Cell Count 7.3 X10^3/uL (4.5-11.0)
[2024-04-21 10:39] LABS: HEMOLYSIS < 15 (0-50); Iron 127 ug/dL (37-170)
[2024-04-21 10:41] LABS: Alanine Aminotransferase 23 IU/L (<35); Albumin 4.4 g/dL (3.5-5.0); Albumin Globulin Ratio 1.8 (1.0-2.8); Alkaline Phosphatase 90 U/L (38-126); Aspartate Aminotransferase 32 IU/L (14-36); BUN Creatinine Ratio 26.2 (6-22); Bilirubin Total 0.6 mg/dL (0.2-1.3); Blood Urea Nitrogen 16 mg/dL (7-17); Calcium 9.5 mg/dL (8.4-10.2); Carbon Dioxide 29 mmol/L (22-32); Chloride 107 mmol/L (98-107); Cholesterol 157 mg/dL (140-199); Estimated Glomerular Filt Rate > 60 mL/min (>60); Globulin 2.4 g/dL (1.7-4.1); Glucose 90 mg/dL (80-110); HDL Cholesterol 65 mg/dL (40-60); HEMOLYSIS < 15 (0-50); LDL Cholesterol Calculated 70 mg/dL (<100); Potassium 4.8 mmol/L (3.4-5.1); Sodium 141 mmol/L (137-145); Total Protein 6.8 g/dL (6.3-8.2); Triglycerides 111 mg/dL (35-150)
[2024-04-21 10:51] LABS: Percent Iron Saturation 33 % (15-50); Total Iron Binding Capacity 381 ug/dL (265-497); Transferrin 301 mg/dL (206-381)
[2024-04-21 11:26] LABS: Vitamin B12 980 pg/mL (239-931)
== END ==
PROVIDERS: PCP Nurse Practitioner; Referring Provider Nurse Practitioner; Visit Provider Nurse Practitioner
DX: E78.5 Hyperlipidemia, unspecified (principal); I10 Essential (primary) hypertension; D64.9 Anemia, unspecified; Z79.899 Other long term (current) drug therapy
CPT/HCPCS: 36415; 80053; 80061; 82607; 83540; 83550; 85025

== ENCOUNTER → 2025-04-01 11:56 | Outpatient (CLI) | payer MEDICARE, SELFPAY ==
[2024-03-17 12:34] VITALS: BMI 42.0
--- NOTE | 2025-04-01 11:57 | DI.US.S_ITS ---
PROCEDURE: US PELVIC COMPLETE INDICATIONS: abnormal bleeding TECHNIQUE: Real-time scanning was performed of the pelvic organs, with image documentation. Additional endovaginal scanning was necessary due to incomplete visualization of the adnexal and endometrial structures by transabdominal scanning. COMPARISON: None. FINDINGS: Uterus: 6.2 x 5.7 x 3.9 cm. Endometrium is thickened, with cystic spaces, measuring up to 2 cm. Suspect senescent myometrial calcifications. Ovaries: Nonenlarged bilaterally, measuring 4 cc on the right and 1 cc on the left. Other: Right cervical hyperechoic lesion is seen, slightly exophytic, measuring 1.9 x 1.5 cm. Nabothian cystic spaces are also seen in the cervix. IMPRESSION: Thickened endometrium with cystic spaces. In the setting of postmenopausal bleeding, sampling is suggested. Right cervical slightly exophytic, hyperechoic lesion may represent a calcified lower uterine segment or cervical fibroid. Attention on follow-up is suggested, versus further evaluation with gynecologic protocol pelvic MRI. Dictated by: Ian Livingston M.D. on 04/01/2025 at 14:08 Approved by: Ian Livingston M.D. on 04/01/2025 at 14:11
== END ==
LOC: US 11:56
PROVIDERS: PCP Nurse Practitioner Family; Referring Provider Nurse Practitioner Family; Visit Provider Nurse Practitioner Family
DX: N95.0 Postmenopausal bleeding (principal); R93.89 Abnormal findings on diagnostic imaging of other specified body structures; N88.9 Noninflammatory disorder of cervix uteri, unspecified
CPT/HCPCS: 76830; 76856

== ENCOUNTER → 2025-04-19 07:49 | Outpatient (CLI) | payer MEDICARE, SELFPAY ==
[2024-03-17 12:34] VITALS: BMI 42.0
[2025-04-19 08:20] LABS: Add Manual Diff / Slide Review NO; Basophils Absolute Auto 0 /uL (0-100); Basophils Percent Auto 0.4 % (0-2); Eosinophils Absolute Auto 200 /uL (0-450); Eosinophils Percent Auto 2.8 % (2-4); Hematocrit 41.8 % (36-46); Hemoglobin 13.9 g/dL (12.0-16.0); Lymphocytes Absolute Auto 1900 /uL (1100-4500); Lymphocytes Percent Auto 34.5 % (25-40); Mean Corpuscular HGB Conc 33.3 % (30-36); Mean Corpuscular Hemoglobin 30.4 PG (26-34); Mean Corpuscular Volume 91.2 fL (80-100); Monocytes Absolute Auto 500 /uL (0-900); Monocytes Percent Auto 9.7 % (3-14); Neutrophils Absolute Auto 2900 /uL (1500-7000); Neutrophils Percent Auto 52.6 % (50-75); Platelet Count 274 X10^3/uL (150-400); Red Blood Cell Count 4.58 X10^6/uL (4.0-5.2); White Blood Cell Count 5.5 X10^3/uL (4.5-11.0)
[2025-04-19 08:30] LABS: Creatinine Urine Random 131.05 mg/dL
[2025-04-19 08:35] LABS: Microalbumin Urine Random 1.2 mg/dL (0-1.6)
[2025-04-19 08:39] LABS: Alanine Aminotransferase 23 IU/L (<35); Albumin 4.2 g/dL (3.5-5.0); Albumin Globulin Ratio 1.9 (1.0-2.8); Alkaline Phosphatase 85 U/L (38-126); Aspartate Aminotransferase 26 IU/L (14-36); BUN Creatinine Ratio 21.5 (6-22); Bilirubin Total 0.4 mg/dL (0.2-1.3); Blood Urea Nitrogen 14 mg/dL (7-17); Calcium 9.6 mg/dL (8.4-10.2); Carbon Dioxide 27 mmol/L (22-32); Chloride 106 mmol/L (98-107); Cholesterol 149 mg/dL (140-199); Estimated Glomerular Filt Rate > 60 mL/min (>60); Globulin 2.2 g/dL (1.7-4.1); Glucose 88 mg/dL (70-99); HDL Cholesterol 64 mg/dL (40-60); HEMOLYSIS < 15 (0-50); LDL Cholesterol Calculated 68 mg/dL (<100); Potassium 4.8 mmol/L (3.4-5.1); Sodium 138 mmol/L (137-145); Total Protein 6.4 g/dL (6.3-8.2); Triglycerides 87 mg/dL (35-150)
== END ==
PROVIDERS: PCP Nurse Practitioner Family; Referring Provider Nurse Practitioner Family; Visit Provider Nurse Practitioner Family
DX: D64.9 Anemia, unspecified (principal); I10 Essential (primary) hypertension; F32.9 Major depressive disorder, single episode, unspecified; E78.5 Hyperlipidemia, unspecified
CPT/HCPCS: 36415; 80053; 80061; 82043; 82570; 85025

== ENCOUNTER → 2025-08-17 11:45 | Outpatient (CLI) | payer MEDICARE, SELFPAY ==
[2024-03-17 12:34] VITALS: BMI 42.0
--- NOTE | 2025-08-17 11:45 | DI.RAD.S_ITS ---
PROCEDURE: XR DEXA AXIAL SKELETON INDICATIONS: asymptomatic age related postmenopausal state COMPARISON: None. FINDINGS: Lumbar Spine: Bone mineral density 1.158 g/cm2, T score 1.0. Left Femoral Neck: Bone mineral density 0.664 g/cm2, T score -1.7. Left Hip: Bone mineral density 0.793 g/cm2, T score -1.2,. Fracture Risk Calculation (when applicable): 10-year fracture risk of a major osteoporotic fracture 11 percent and of a hip fracture 16 percent. (T score greater or equal to -1.0 to: NORMAL) (T score from -1.1 to -2.4: OSTEOPENIA) (T score less than or equal to -2.5: OSTEOPOROSIS) IMPRESSION: Mild osteopenia in the left femoral neck. Follow-up guidelines as follows: Osteoporosis: Consider a repeat DEXA and Vertebral Fracture Assessment (VFA) exam in 2 years or sooner if medically necessary, to reassess this patient's status. Osteopenia: Consider a repeat DEXA in 2-3 years to reassess this patient's status, or if there is a new clinical indication. Normal: Consider a repeat DEXA in 5 years or sooner, or if there is a new clinical indication. All treatment decisions require clinical judgment and consideration of individual patient factors, including patient preferences, comorbidities, previous drug use, risk factors not captured in the FRAX model (e.g., frailty, falls, vitamin D deficiency, increased bone turnover, interval significant decline in bone density ) and possible under- or over-estimation of fracture risk by FRAX. In addition, the NOF Guide recommends that FDA-approved medical therapies be considered in postmenopausal women and men age >= 50 years with a: * Hip or vertebral (clinical or morphometric) fracture * T-score of <=-2.5 at the spine or hip * Ten-year fracture probability by FRAX of >= 3% for hip fracture or >=20% for major osteoporotic fracture. Dictated by: Lexi Bynum M.D. on 08/17/2025 at 17:23 Approved by: Lexi Bynum M.D. on 08/17/2025 at 17:25
== END ==
PROVIDERS: PCP Nurse Practitioner Family; Referring Provider Nurse Practitioner Family; Visit Provider Nurse Practitioner Family
DX: Z78.0 Asymptomatic menopausal state (principal); M85.852 Other specified disorders of bone density and structure, left thigh
CPT/HCPCS: 77080